=== PATIENT | male | born 1955 | race Caucasian/White ===

== ENCOUNTER 2017-08-25 13:11 | Emergency (ER) | payer SELFPAY ==
[~2017-08-25] VITALS: Ht 188 cm; Wt 97.7 kg
[~2017-08-25 13:11] MED LIST: CIPROFLOXACN500 MG PO; METRONIDAZOL500 MG PO; NORCO1 TA1 PO; TENORMIN PO
[2017-08-25 14:58] LABS: HEMOGLOBIN 18.6 g/dl (14.0-18.0); IMMATURE GRANULOCYTES 0.4 % (0.0-1.0); MEAN CELL VOLUME 91.5 fL CALC (80.0-100.0); MEAN CORPUSCULAR HGB 32.1 pG CALC (26.0-32.0); MEAN CORPUSCULAR HGB CONC 35.1 g/L CALC (32.0-36.0); NEUT# 8.6 thou/uL (1.82-7.42); RED BLOOD COUNT 5.79 mill/uL (4.70-6.10); RED CELL DISTRI WIDTH 12.4 % (11.5-15.5)
[2017-08-25 15:23] LABS: ANION GAP 17 (6-22 (CALC)); BUN 8 mg/dL (8-23); BUN/CREATININE RATIO 10 (12-20 (CALC)); CARBON DIOXIDE 27 mmol/l (22-30); CHLORIDE 96 mmol/l (95-108); CREATININE 0.8 mg/dL (0.7-1.3); GFR > 60 ML/MIN (>=60 (CALC)); GFR FOR AFR.AMER. > 60 ML/MIN (>=60 (CALC)); SODIUM 136 mmol/l (137-146)
[2017-08-25 17:20] VITALS: BP 209/110
[2017-08-26] MEDS ORDERED: ATENOLOL100 M1 PO (06:36)
[2017-08-26] MEDS ORDERED: FLEXERIL PO (07:34)
[2017-08-26] MEDS ORDERED: PREDNISONE50 MG PO (07:34)
[2017-08-26] MEDS ORDERED: PERCOCET 5/325M1 TAB PO (07:34)
[2017-08-26] MEDS ORDERED: AMLODIPINE10 MG PO (07:45)
== END 2017-08-25 18:04 | disposition left against medical advice (07) | DRG 552 ==
LOC: ED 13:11 → ED-I 16:00 → ED 17:20
PROVIDERS: Family Medicine
DX: M54.5 Low back pain (principal); F17.210 Nicotine dependence, cigarettes, uncomplicated; I16.1 Hypertensive emergency; M25.551 Pain in right hip; R07.81 Pleurodynia; I10 Essential (primary) hypertension; X50.0XXA Overexertion from strenuous movement or load, initial encounter; Y93.89 Activity, other specified; Y92.008 Other place in unspecified non-institutional (private) residence as the place of occurrence of the external cause; Z91.19 Patient's noncompliance with other medical treatment and regimen

== ENCOUNTER 2017-08-26 05:50 | Emergency (ER) | payer SELFPAY ==
[~2017-08-26] VITALS: Ht 188 cm; Wt 95.6 kg
[2017-08-26] MEDS ORDERED: ATENOLOL100 M1 PO (06:36)
[2017-08-26] MEDS ORDERED: PERCOCET 5/325M1 TAB PO (07:34)
[2017-08-26] MEDS ORDERED: PREDNISONE50 MG PO (07:34)
[2017-08-26] MEDS ORDERED: FLEXERIL PO (07:34)
[2017-08-26] MEDS ORDERED: AMLODIPINE10 MG PO (07:45)
[2017-08-26 08:07] VITALS: BP 140/87
== END 2017-08-26 08:07 | disposition home or self-care (01) | DRG 305 ==
LOC: ED 05:50
DX: I10 Essential (primary) hypertension (principal); S39.012A Strain of muscle, fascia and tendon of lower back, initial encounter; F17.210 Nicotine dependence, cigarettes, uncomplicated; W11.XXXA Fall on and from ladder, initial encounter

== ENCOUNTER 2018-06-24 14:41 | Emergency (ER) | payer MEDICARE ==
[~2018-06-24] VITALS: Ht 188 cm; Wt 49.0 kg
[~2018-06-24 14:41] MED LIST changes: +AMLODIPINE10 MG PO; +ATENOLOL100 M1 PO; +FLEXERIL PO; +PERCOCET 5/325M1 TAB PO; +PREDNISONE50 MG PO
[2018-06-24 14:55] LABS: GFR > 60 ML/MIN (>=60 (CALC)); GFR FOR AFR.AMER. > 60 ML/MIN (>=60 (CALC))
[2018-06-24 15:14] LABS: ACT PARTIAL THROMBO TIME 26.2 SECONDS (20.0-32.5); PROTHROMBIN TIME 10.6 SECONDS (9.0-12.5)
[2018-06-24 15:15] LABS: ALBUMIN 4.4 g/dL (3.2-5.0); ALKALINE PHOSPHATASE 130 u/l (38-126); ANION GAP 16 (6-22 (CALC)); BILIRUBIN, TOTAL 0.8 mg/dL (0.0-1.4); BUN 8 mg/dL (8-23); BUN/CREATININE RATIO 9 (12-20 (CALC)); CARBON DIOXIDE 23 mmol/l (22-30); CHLORIDE 97 mmol/l (95-108); CREATININE 0.9 mg/dL (0.7-1.3); GFR > 60 ML/MIN (>=60 (CALC)); GFR FOR AFR.AMER. > 60 ML/MIN (>=60 (CALC)); POTASSIUM 4.2 mmol/l (3.5-5.1); SGOT/AST 31 u/l (19-48); SODIUM 132 mmol/l (137-146); TOTAL PROTEIN 6.7 g/dL (6.3-8.2)
[2018-06-24 15:20] LABS: HEMATOCRIT 53.6 % (39.0-50.0); HEMOGLOBIN 18.9 g/dl (14.0-18.0); IMMATURE GRANULOCYTES 0.3 % (0.0-5.0); MEAN CELL VOLUME 91.5 fL CALC (80.0-100.0); MEAN CORPUSCULAR HGB 32.3 pG CALC (26.0-32.0); MEAN CORPUSCULAR HGB CONC 35.3 g/L CALC (32.0-36.0); NEUT# 8.65 thou/uL (1.82-7.42); RED BLOOD COUNT 5.86 mill/uL (4.70-6.10); RED CELL DISTRI WIDTH 11.9 % (11.5-15.5)
[2018-06-24 15:45] VITALS: BP 162/91
== END 2018-06-24 15:57 | disposition short-term general hospital (02) ==
LOC: ED 14:41
PROVIDERS: Family Medicine
DX: I63.9 Cerebral infarction, unspecified (principal); R29.810 Facial weakness; R27.0 Ataxia, unspecified; I10 Essential (primary) hypertension; F17.200 Nicotine dependence, unspecified, uncomplicated; R29.704 NIHSS score 4
CPT/HCPCS: J2997; Q9967

== ENCOUNTER 2019-04-19 11:49 | Emergency (ER) | payer MEDICARE, OTHER ==
[~2019-04-19] VITALS: Ht 188 cm; Wt 98.0 kg
[2019-04-19] MEDS ORDERED: LISINOPRIL20 MG PO (12:33)
[2019-04-19] MEDS ORDERED: NORVASC5 M1 PO (12:33)
[2019-04-19] MEDS ORDERED: ELIQUIS5 MG PO (12:33)
[2019-04-19] MEDS ORDERED: LISINOPRIL40 MG PO (14:06)
[2019-04-19] MEDS ORDERED: PRAVASTATIN SOD80 MG PO (14:06)
[2019-04-19] MEDS ORDERED: TRAMADOL HYDROC50 M1 PO (14:37)
[2019-04-19 14:45] VITALS: BP 117/76
[2019-06-15] MEDS ORDERED: ASPIRIN 81 LOW81 MG PO (15:26)
== END 2019-04-19 14:45 | disposition home or self-care (01) ==
LOC: ED 11:49
DX: M79.602 Pain in left arm (principal); I69.934 Monoplegia of upper limb following unspecified cerebrovascular disease affecting left non-dominant side; I10 Essential (primary) hypertension; F17.210 Nicotine dependence, cigarettes, uncomplicated

== ENCOUNTER 2019-05-08 17:04 | Emergency (ER) | payer MEDICARE, OTHER ==
[~2019-05-08] VITALS: Ht 188 cm; Wt 97.3 kg
[~2019-05-08 17:04] MED LIST changes: +ELIQUIS5 MG PO; +LISINOPRIL20 MG PO; +LISINOPRIL40 MG PO; +NORVASC5 M1 PO; +PRAVASTATIN SOD80 MG PO; +TRAMADOL HYDROC50 M1 PO
[2019-05-08 18:54] LABS: HEMATOCRIT 36.5 % (39.0-50.0); HEMOGLOBIN 12.3 g/dl (14.0-18.0); IMMATURE GRANULOCYTES 0.3 % (0.0-5.0); MEAN CELL VOLUME 88.4 fL CALC (80.0-100.0); MEAN CORPUSCULAR HGB 29.8 pG CALC (26.0-32.0); MEAN CORPUSCULAR HGB CONC 33.7 g/L CALC (32.0-36.0); NEUT# 7.43 thou/uL (1.82-7.42); RED BLOOD COUNT 4.13 mill/uL (4.70-6.10); RED CELL DISTRI WIDTH 12.4 % (11.5-15.5)
[2019-05-08 19:53] LABS: ALBUMIN 3.5 g/dL (3.2-5.0); ALKALINE PHOSPHATASE 115 u/l (38-126); ANION GAP 14 (6-22 (CALC)); BILIRUBIN, TOTAL 0.5 mg/dL (0.0-1.4); BUN 20 mg/dL (8-23); BUN/CREATININE RATIO 22 (12-20 (CALC)); CARBON DIOXIDE 22 mmol/l (22-30); CHLORIDE 105 mmol/l (95-108); CREATININE 0.9 mg/dL (0.7-1.3); GFR > 60 ML/MIN (>=60 (CALC)); GFR FOR AFR.AMER. > 60 ML/MIN (>=60 (CALC)); LIPASE 90 u/l (23-300); POTASSIUM 4.4 mmol/l (3.5-5.1); SGOT/AST 20 u/l (19-48); SODIUM 136 mmol/l (137-146); TOTAL PROTEIN 6.4 g/dL (6.3-8.2)
[2019-05-08 20:33] LABS: URINE BILIRUBIN - DIPSTICK NEGATIVE (NEGATIVE); URINE BLOOD DIPSTICK NEGATIVE (NEGATIVE); URINE COLOR YELLOW; URINE GLUCOSE - DIPSTICK NEGATIVE (NEGATIVE); URINE KETONE NEGATIVE (NEGATIVE); URINE LEUK ESTERASE NEGATIVE (NEGATIVE); URINE NITRITE - DIPSTICK NEGATIVE (Negative); URINE PH 5.5 (4.5-8.0); URINE PROTEIN - DIPSTICK NEGATIVE (NEG-TRACE); URINE SPECIFIC GRAVITY 1.025; URINE UROBILINOGEN - DIPSTICK 0.2 E.U./dL (0.2)
[2019-05-08] MEDS ORDERED: TRAMADOL HCL50 MG PO (21:58)
[2019-05-08] MEDS ORDERED: TORADOL PO (21:58)
[2019-05-08 22:50] VITALS: BP 110/68
[2019-06-15] MEDS ORDERED: ASPIRIN 81 LOW81 MG PO (15:26)
== END 2019-05-08 22:50 | disposition home or self-care (01) ==
LOC: ED 17:04
PROVIDERS: Family Medicine
DX: S39.012A Strain of muscle, fascia and tendon of lower back, initial encounter (principal); S30.0XXA Contusion of lower back and pelvis, initial encounter; R10.9 Unspecified abdominal pain; R07.89 Other chest pain; M25.561 Pain in right knee; I10 Essential (primary) hypertension; F17.210 Nicotine dependence, cigarettes, uncomplicated; V03.00XA Pedestrian on foot injured in collision with car, pick-up truck or van in nontraffic accident, initial encounter; Y92.481 Parking lot as the place of occurrence of the external cause

== ENCOUNTER 2019-07-18 | Emergency (ER) | payer MEDICARE, OTHER ==
[~2019-07-18] MED LIST changes: +ASPIRIN 81 LOW81 MG PO; +TORADOL PO; +TRAMADOL HCL50 MG PO
[2019-07-18] MEDS ORDERED: HYDROCO/APAP1 TA9 PO (13:43)
== END 2019-07-18 13:46 | disposition home or self-care (01) ==
PROC: 0RSWXZZ Reposition Right Finger Phalangeal Joint, External Approach (ICD-10-PCS; principal; 2019-07-18)
DX: S63.284A Dislocation of proximal interphalangeal joint of right ring finger, initial encounter (principal); S62.304A Unspecified fracture of fourth metacarpal bone, right hand, initial encounter for closed fracture; S60.512A Abrasion of left hand, initial encounter; R51 Headache; M54.5 Low back pain; I10 Essential (primary) hypertension; I69.354 Hemiplegia and hemiparesis following cerebral infarction affecting left non-dominant side; F17.200 Nicotine dependence, unspecified, uncomplicated; W10.9XXA Fall (on) (from) unspecified stairs and steps, initial encounter; Y92.009 Unspecified place in unspecified non-institutional (private) residence as the place of occurrence of the external cause

== ENCOUNTER 2020-06-17 14:11 | Emergency (ER) | payer MEDICARE, OTHER ==
[~2020-06-17] VITALS: Ht 188 cm; Wt 75.0 kg
[~2020-06-17 14:11] MED LIST changes: +HYDROCO/APAP1 TA9 PO
[2020-06-17 15:53] LABS: HEMATOCRIT 31.4 % (39.0-50.0); IMMATURE GRANULOCYTES 0.4 % (0.0-5.0); MEAN CELL VOLUME 85.6 fL CALC (80.0-100.0); MEAN CORPUSCULAR HGB 27.2 pG CALC (26.0-32.0); MEAN CORPUSCULAR HGB CONC 31.8 g/dL CAL (32.0-36.0); NEUT# 2.7 thou/uL (1.82-7.42); RED BLOOD COUNT 3.67 mill/uL (4.70-6.10); RED CELL DISTRI WIDTH 16.1 % (11.5-15.5)
[2020-06-17 16:38] LABS: ACT PARTIAL THROMBO TIME 32.3 SECONDS (20.0-32.5); INTERNATIONAL NORMALIZED RATIO 1.2 RATIO (0.7-1.3); PROTHROMBIN TIME 11.8 SECONDS (9.0-12.5)
[2020-06-17 17:30] VITALS: BP 135/75
== END 2020-06-17 17:33 | disposition home or self-care (01) ==
LOC: ED 14:11
DX: K94.01 Colostomy hemorrhage (principal); K94.09 Other complications of colostomy; L30.8 Other specified dermatitis; I10 Essential (primary) hypertension; F17.200 Nicotine dependence, unspecified, uncomplicated; Y83.3 Surgical operation with formation of external stoma as the cause of abnormal reaction of the patient, or of later complication, without mention of misadventure at the time of the procedure; Z86.73 Personal history of transient ischemic attack (TIA), and cerebral infarction without residual deficits; Z79.01 Long term (current) use of anticoagulants

== ENCOUNTER 2021-02-08 09:57 | Emergency (ER) | payer MEDICARE, OTHER ==
[~2021-02-08] VITALS: Ht 188 cm; Wt 50.0 kg
[2021-02-08] MEDS ORDERED: TRAZODONE50 MG PO (10:16)
[2021-02-08 10:54] VITALS: BP 137/79
== END 2021-02-08 11:00 | disposition home or self-care (01) ==
LOC: ED 09:57
DX: Z43.3 Encounter for attention to colostomy (principal); I10 Essential (primary) hypertension; Z86.73 Personal history of transient ischemic attack (TIA), and cerebral infarction without residual deficits; F17.200 Nicotine dependence, unspecified, uncomplicated

== ENCOUNTER 2021-08-03 17:19 | Emergency (ER) | payer MEDICARE, OTHER ==
[~2021-08-03] VITALS: Ht 188 cm; Wt 81.8 kg
[~2021-08-03 17:19] MED LIST changes: +TRAZODONE50 MG PO
[2021-08-03] MEDS ORDERED: HYDROCO/APAP1 T10 PO (17:46)
[2021-08-03] MEDS ORDERED: PREDNISONE50 MG PO (17:50)
[2021-08-03 17:59] VITALS: BP 132/78
== END 2021-08-03 18:14 | disposition home or self-care (01) ==
LOC: ED 17:19
DX: M54.50 Low back pain, unspecified (principal); I10 Essential (primary) hypertension; F17.200 Nicotine dependence, unspecified, uncomplicated; Z86.73 Personal history of transient ischemic attack (TIA), and cerebral infarction without residual deficits

== ENCOUNTER 2021-08-05 11:37 | Emergency (ER) | payer MEDICARE, OTHER ==
[~2021-08-05] VITALS: Ht 188 cm; Wt 90.0 kg
[~2021-08-05 11:37] MED LIST changes: +HYDROCO/APAP1 T10 PO
[2021-08-05 11:43] VITALS: BP 182/105
[2021-08-05 11:44] VITALS: BP 168/108
[2021-08-05 12:01] VITALS: BP 165/95
[2021-08-05 12:15] VITALS: BP 160/106
[2021-08-05 15:18] LABS: URINE BILIRUBIN - DIPSTICK NEGATIVE (NEGATIVE); URINE BLOOD DIPSTICK SMALL (NEGATIVE); URINE COLOR YELLOW; URINE GLUCOSE - DIPSTICK NEGATIVE (NEGATIVE); URINE KETONE NEGATIVE (NEGATIVE); URINE LEUK ESTERASE NEGATIVE (NEGATIVE); URINE PH 5.5 (4.5-8.0); URINE PROTEIN - DIPSTICK NEGATIVE (NEG-TRACE); URINE SPECIFIC GRAVITY 1.025; URINE UROBILINOGEN - DIPSTICK 0.2 E.U./dL (0.2)
[2021-08-05 15:19] LABS: URINE NITRITE - DIPSTICK NEGATIVE (Negative)
[2021-08-05 15:28] LABS: URINE WBC 0-2 WBC/hpf (0-5)
[2021-08-05] MEDS ORDERED: MEDDOSEPAK PO (15:37)
[2021-08-05 16:23] VITALS: BP 137/87
== END 2021-08-05 16:23 | disposition home or self-care (01) ==
LOC: ED 11:37
DX: M54.50 Low back pain, unspecified (principal); F15.10 Other stimulant abuse, uncomplicated; I10 Essential (primary) hypertension; F17.200 Nicotine dependence, unspecified, uncomplicated; Z86.73 Personal history of transient ischemic attack (TIA), and cerebral infarction without residual deficits

== ENCOUNTER 2021-08-06 12:20 | Inpatient (IN) | payer MEDICARE, OTHER ==
[2021-08-06] VITALS (10 sets, daily range): BP systolic 126–152; BP diastolic 68–95
[~2021-08-06] VITALS: Ht 188 cm; Wt 84.0 kg
[~2021-08-06 12:20] MED LIST changes: +MEDDOSEPAK PO
[2021-08-06 13:15] LABS: GFR > 60 ML/MIN (>=60 (CALC)); GFR FOR AFR.AMER. > 60 ML/MIN (>=60 (CALC))
[2021-08-06 13:18] LABS: HEMATOCRIT 36.6 % (39.0-50.0); HEMOGLOBIN 12.1 g/dl (14.0-18.0); IMMATURE GRANULOCYTES 1.1 % (0.0-5.0); MEAN CELL VOLUME 83.2 fL CALC (80.0-100.0); MEAN CORPUSCULAR HGB 27.5 pG CALC (26.0-32.0); MEAN CORPUSCULAR HGB CONC 33.1 g/dL CAL (32.0-36.0); NEUT# 18.57 thou/uL (1.82-7.42); RED BLOOD COUNT 4.4 mill/uL (4.70-6.10); RED CELL DISTRI WIDTH 13.6 % (11.5-15.5)
[2021-08-06 13:33] LABS: ALBUMIN 3.3 g/dL (3.2-5.0); ALKALINE PHOSPHATASE 84 u/l (38-126); ANION GAP 11 (6-22 (CALC)); BILIRUBIN, TOTAL 1.5 mg/dL (0.0-1.4); BUN 21 mg/dL (8-23); BUN/CREATININE RATIO 19 (12-20 (CALC)); CARBON DIOXIDE 24 mmol/l (22-30); CHLORIDE 100 mmol/l (95-108); CREATININE 1.1 mg/dL (0.7-1.3); GFR > 60 ML/MIN (>=60 (CALC)); GFR FOR AFR.AMER. > 60 ML/MIN (>=60 (CALC)); POTASSIUM 3.8 mmol/l (3.5-5.1); SGOT/AST 84 u/l (19-48); SODIUM 131 mmol/l (137-146); TOTAL PROTEIN 6.4 g/dL (6.3-8.2)
[2021-08-06 13:37] LABS: URINE BILIRUBIN - DIPSTICK NEGATIVE (NEGATIVE); URINE BLOOD DIPSTICK LARGE (NEGATIVE); URINE COLOR YELLOW; URINE GLUCOSE - DIPSTICK NEGATIVE (NEGATIVE); URINE KETONE TRACE mg/dL (NEGATIVE); URINE LEUK ESTERASE NEGATIVE (NEGATIVE); URINE PROTEIN - DIPSTICK 100 mg/dL (NEG-TRACE); URINE UROBILINOGEN - DIPSTICK 0.2 E.U./dL (0.2)
[2021-08-06 13:43] LABS: URINE NITRITE - DIPSTICK NEGATIVE (Negative)
== END 2021-08-06 20:45 | disposition short-term general hospital (02) | DRG 871 ==
LOC: ED 12:20 → ED-I 15:22 → ED 15:37 → MS2 15:38
PROVIDERS: Family Medicine; ADMIT Internal Medicine; ATTEND Internal Medicine
DX: A41.9 Sepsis, unspecified organism (principal); G93.41 Metabolic encephalopathy; K94.09 Other complications of colostomy; R65.20 Severe sepsis without septic shock; I10 Essential (primary) hypertension; F15.10 Other stimulant abuse, uncomplicated; M54.6 Pain in thoracic spine; M54.50 Low back pain, unspecified; F17.200 Nicotine dependence, unspecified, uncomplicated; Y83.3 Surgical operation with formation of external stoma as the cause of abnormal reaction of the patient, or of later complication, without mention of misadventure at the time of the procedure; Z86.73 Personal history of transient ischemic attack (TIA), and cerebral infarction without residual deficits; Z20.822 Contact with and (suspected) exposure to COVID-19; Z86.718 Personal history of other venous thrombosis and embolism; Z79.01 Long term (current) use of anticoagulants
CPT/HCPCS: Q9967

== ENCOUNTER 2021-11-24 17:50 | Observation (INO) | payer MEDICARE, OTHER ==
[~2021-11-24] VITALS: Ht 188 cm; Wt 82.0 kg
[2021-11-24] VITALS (15 sets, daily range): BP systolic 95–139; BP diastolic 58–87
[2021-11-24] MEDS ORDERED: TAMSULOSIN HCL0.4 MG PO (19:01)
[2021-11-24 19:05] LABS: HEMATOCRIT 36.6 % (39.0-50.0); HEMOGLOBIN 12.4 g/dl (14.0-18.0); IMMATURE GRANULOCYTES 0.2 % (0.0-5.0); MEAN CELL VOLUME 79.7 fL CALC (80.0-100.0); MEAN CORPUSCULAR HGB CONC 33.9 g/dL CAL (32.0-36.0); NEUT# 16.4 thou/uL (1.82-7.42); RED BLOOD COUNT 4.59 mill/uL (4.70-6.10); RED CELL DISTRI WIDTH 13.6 % (11.5-15.5)
[2021-11-24 19:29] LABS: ACT PARTIAL THROMBO TIME 36.6 SECONDS (20.0-32.5); INTERNATIONAL NORMALIZED RATIO 1.2 RATIO (0.7-1.3); PROTHROMBIN TIME 12.7 SECONDS (9.0-12.5)
[2021-11-24 19:35] LABS: ALBUMIN 3.5 g/dL (3.2-5.0); ALKALINE PHOSPHATASE 103 u/l (38-126); BUN 25 mg/dL (8-23); CHLORIDE 108 mmol/l (95-108); POTASSIUM 3.4 mmol/l (3.5-5.1); SODIUM 136 mmol/l (137-146); TOTAL PROTEIN 6.4 g/dL (6.3-8.2)
[2021-11-24 19:39] LABS: ANION GAP 15 (6-22 (CALC)); BILIRUBIN, TOTAL 0.7 mg/dL (0.0-1.4); BUN/CREATININE RATIO 12 (12-20 (CALC)); CARBON DIOXIDE 16 mmol/l (22-30); CREATININE 2.1 mg/dL (0.7-1.3); GFR FOR AFR.AMER. 38 ML/MIN (>=60 (CALC)); GFR OTHER RACES 32 ML/MIN (>=60 (CALC)); SGOT/AST 12 u/l (19-48)
[2021-11-25] VITALS (9 sets, daily range): BP systolic 108–164; BP diastolic 55–81
[2021-11-25 05:16] LABS: MEAN CELL VOLUME 81.9 fL CALC (80.0-100.0); MEAN CORPUSCULAR HGB 27.8 pG CALC (26.0-32.0); RED BLOOD COUNT 3.7 mill/uL (4.70-6.10); RED CELL DISTRI WIDTH 13.8 % (11.5-15.5)
[2021-11-25 05:20] LABS: HEMATOCRIT 30.3 % (39.0-50.0); HEMOGLOBIN 10.3 g/dl (14.0-18.0)
[2021-11-25 05:37] LABS: CREATININE 1.9 mg/dL (0.7-1.3); MAGNESIUM 1.9 mg/dL (1.6-2.3); POTASSIUM 3.7 mmol/l (3.5-5.1)
[2021-11-25 23:04] LABS: URINE BILIRUBIN - DIPSTICK NEGATIVE (NEGATIVE); URINE BLOOD DIPSTICK LARGE (NEGATIVE); URINE COLOR YELLOW; URINE GLUCOSE - DIPSTICK NEGATIVE (NEGATIVE); URINE KETONE NEGATIVE (NEGATIVE); URINE LEUK ESTERASE NEGATIVE (NEGATIVE); URINE PROTEIN - DIPSTICK NEGATIVE (NEG-TRACE); URINE SPECIFIC GRAVITY 1.025; URINE UROBILINOGEN - DIPSTICK 0.2 E.U./dL (0.2)
[2021-11-25 23:05] LABS: URINE NITRITE - DIPSTICK NEGATIVE (Negative)
[2021-11-25 23:11] LABS: URINE AMORPH SEDIMENT MANY hpf (NONE-FER); URINE BACTERIA FEW hpf; URINE SQUAMOUS EPITHELIAL CELL FEW EPI/hpf (0-FEW); URINE WBC 0-2 WBC/hpf (0-5)
[2021-11-26 04:03] VITALS: BP 162/84
[2021-11-26 06:47] VITALS: BP 173/88
[2021-11-26 10:23] LABS: HEMATOCRIT 28.7 % (39.0-50.0); HEMOGLOBIN 9.7 g/dl (14.0-18.0); MEAN CELL VOLUME 80.8 fL CALC (80.0-100.0); MEAN CORPUSCULAR HGB 27.3 pG CALC (26.0-32.0); MEAN CORPUSCULAR HGB CONC 33.8 g/dL CAL (32.0-36.0); RED BLOOD COUNT 3.55 mill/uL (4.70-6.10)
[2021-11-26 10:31] LABS: CREATININE 1.6 mg/dL (0.7-1.3); MAGNESIUM 1.6 mg/dL (1.6-2.3)
[2021-11-26 10:32] LABS: POTASSIUM 2.9 mmol/l (3.5-5.1)
[2021-11-26 12:07] VITALS: BP 162/86
[2021-11-26 16:27] VITALS: BP 178/87
[2021-11-26 19:22] VITALS: BP 136/76
[2021-11-27 00:14] VITALS: BP 182/94
[2021-11-27 04:35] VITALS: BP 187/83
[2021-11-27 05:06] LABS: HEMATOCRIT 28.1 % (39.0-50.0); HEMOGLOBIN 9.7 g/dl (14.0-18.0); MEAN CELL VOLUME 80.5 fL CALC (80.0-100.0); MEAN CORPUSCULAR HGB 27.8 pG CALC (26.0-32.0); MEAN CORPUSCULAR HGB CONC 34.5 g/dL CAL (32.0-36.0); RED BLOOD COUNT 3.49 mill/uL (4.70-6.10); RED CELL DISTRI WIDTH 14.2 % (11.5-15.5)
[2021-11-27 05:22] LABS: BUN 13 mg/dL (8-23); BUN/CREATININE RATIO 9 (12-20 (CALC)); CHLORIDE 114 mmol/l (95-108); CREATININE 1.4 mg/dL (0.7-1.3); GFR FOR AFR.AMER. > 60 ML/MIN (>=60 (CALC)); GFR OTHER RACES 50 ML/MIN (>=60 (CALC)); MAGNESIUM 1.9 mg/dL (1.6-2.3); SODIUM 138 mmol/l (137-146)
[2021-11-27 05:34] LABS: ANION GAP 8 (6-22 (CALC)); CARBON DIOXIDE 20 mmol/l (22-30); POTASSIUM 3.8 mmol/l (3.5-5.1)
[2021-11-27 06:34] VITALS: BP 181/88
[2021-11-27] MEDS ORDERED: AMOX/K CLAV875 M1 PO (09:42)
[2021-11-27 11:22] VITALS: BP 188/93
[2021-11-27] MEDS ORDERED: NORVASC10 M1 PO (11:37)
== END 2021-11-27 14:05 | disposition home or self-care (01) ==
LOC: ED 17:50 → ED-I 20:15 → MS2 20:21 → ED 20:21 → MS2 20:21
PROVIDERS: Family Medicine; ADMIT Hospitalist; ATTEND Hospitalist
DX: D72.829 Elevated white blood cell count, unspecified (principal); N17.9 Acute kidney failure, unspecified; F15.10 Other stimulant abuse, uncomplicated; I12.9 Hypertensive chronic kidney disease with stage 1 through stage 4 chronic kidney disease, or unspecified chronic kidney disease; N18.4 Chronic kidney disease, stage 4 (severe); F17.210 Nicotine dependence, cigarettes, uncomplicated; Z93.3 Colostomy status; Z86.79 Personal history of other diseases of the circulatory system; Z79.01 Long term (current) use of anticoagulants; Z90.49 Acquired absence of other specified parts of digestive tract; Z86.73 Personal history of transient ischemic attack (TIA), and cerebral infarction without residual deficits; Z20.822 Contact with and (suspected) exposure to COVID-19
CPT/HCPCS: G0378; J3475

== ENCOUNTER 2021-12-25 13:08 | Emergency (ER) | payer MEDICARE, OTHER ==
[~2021-12-25] VITALS: Ht 188 cm; Wt 81.8 kg
[~2021-12-25 13:08] MED LIST changes: +AMOX/K CLAV875 M1 PO; +NORVASC10 M1 PO; +TAMSULOSIN HCL0.4 MG PO
[2021-12-25 15:27] VITALS: BP 127/78
== END 2021-12-25 15:43 | disposition home or self-care (01) ==
LOC: ED 13:08
DX: Z43.3 Encounter for attention to colostomy (principal); S41.112A Laceration without foreign body of left upper arm, initial encounter; I10 Essential (primary) hypertension; F17.200 Nicotine dependence, unspecified, uncomplicated; W22.01XA Walked into wall, initial encounter; Z86.73 Personal history of transient ischemic attack (TIA), and cerebral infarction without residual deficits

== ENCOUNTER 2022-06-07 09:40 | Emergency (ER) | payer MEDICARE, OTHER ==
[~2022-06-07] VITALS: Ht 188 cm; Wt 75.0 kg
[2022-06-07 10:01] VITALS: BP 171/97
[2022-06-07 10:16] VITALS: BP 102/83
[2022-06-07 10:31] VITALS: BP 102/83
== END 2022-06-07 10:36 | disposition home or self-care (01) ==
LOC: ED 09:40
DX: Z46.89 Encounter for fitting and adjustment of other specified devices (principal); I10 Essential (primary) hypertension; Z86.73 Personal history of transient ischemic attack (TIA), and cerebral infarction without residual deficits; F17.200 Nicotine dependence, unspecified, uncomplicated

== ENCOUNTER 2023-02-04 12:29 | Emergency (ER) | payer MEDICARE ==
[~2023-02-04] VITALS: Ht 188 cm; Wt 74.2 kg
[2023-02-04 12:43] VITALS: BP 132/111
[2023-02-04 12:44] VITALS: BP 162/97
[2023-02-04 13:25] LABS: BASO% 0.5 % (0-3); EOS% 1.5 % (0-8); IMMATURE GRANULOCYTES 0.3 % (0.0-5.0); LYMPH% 14.6 % (15-41); MEAN CORPUSCULAR HGB 29.1 pG CALC (26.0-32.0); MEAN CORPUSCULAR HGB CONC 33.7 g/dL CAL (32.0-36.0); MONO% 8.2 % (2-13); NEUT# 8.69 thou/uL (1.82-7.42); NEUT% 74.9 % (42-76); RED BLOOD COUNT 4.57 mill/uL (4.70-6.10); RED CELL DISTRI WIDTH 12.8 % (11.5-15.5)
[2023-02-04 13:29] LABS: HEMATOCRIT 39.5 % (39.0-50.0); HEMOGLOBIN 13.3 g/dl (14.0-18.0); MEAN CELL VOLUME 86.4 fL CALC (80.0-100.0)
[2023-02-04 13:30] LABS: ALBUMIN 4.1 g/dL (3.2-5.0); ALKALINE PHOSPHATASE 134 u/l (38-126); ANION GAP 13 (6-22 (CALC)); BILIRUBIN, TOTAL 0.8 mg/dL (0.2-1.3); BUN 26 mg/dL (8-23); BUN/CREATININE RATIO 21 (12-20 (CALC)); CARBON DIOXIDE 21 mmol/l (22-30); CHLORIDE 106 mmol/l (95-108); CREATININE 1.2 mg/dL (0.7-1.3); GFR FOR AFR.AMER. > 60 ML/MIN (>=60 (CALC)); GFR OTHER RACES 60 ML/MIN (>=60 (CALC)); POTASSIUM 4.2 mmol/l (3.5-5.1); SGOT/AST 21 u/l (19-48); SODIUM 136 mmol/l (137-146); TOTAL PROTEIN 7.5 g/dL (6.3-8.2)
[2023-02-04 13:58] VITALS: BP 171/71
[2023-02-04 14:01] VITALS: BP 185/153
[2023-02-04] MEDS ORDERED: PREDNISONE20 MG PO (17:09)
[2023-02-04] MEDS ORDERED: KEFLEX500 MG PO (17:09)
[2023-02-04] MEDS ORDERED: MUPIROCIN2 % EX (17:09)
[2023-02-04] MEDS ORDERED: CYCLOBENZAPRINE10 MG PO (17:09)
[2023-02-04 17:17] LABS: URINE BILIRUBIN - DIPSTICK Negative (NEGATIVE); URINE BLOOD DIPSTICK Small (NEGATIVE); URINE GLUCOSE - DIPSTICK Negative (NEGATIVE); URINE KETONE Negative (NEGATIVE); URINE LEUK ESTERASE Negative (NEGATIVE); URINE NITRITE - DIPSTICK Negative (Negative); URINE PH 5.5 (4.5-8.0); URINE PROTEIN - DIPSTICK 30 mg/dL (NEG-TRACE); URINE UROBILINOGEN - DIPSTICK 0.2 E.U./dL (0.2)
[2023-02-04 17:22] LABS: URINE COLOR Yellow
[2023-02-04 17:25] LABS: URINE WBC 0-2 WBC/hpf (0-5)
[2023-02-04 17:37] VITALS: BP 185/153
== END 2023-02-04 18:10 | disposition home or self-care (01) ==
LOC: ED 12:29
PROVIDERS: Nurse Practitioner
DX: S16.1XXA Strain of muscle, fascia and tendon at neck level, initial encounter (principal); L03.114 Cellulitis of left upper limb; L03.113 Cellulitis of right upper limb; B95.8 Unspecified staphylococcus as the cause of diseases classified elsewhere; I10 Essential (primary) hypertension; F17.210 Nicotine dependence, cigarettes, uncomplicated; X58.XXXA Exposure to other specified factors, initial encounter; Z86.73 Personal history of transient ischemic attack (TIA), and cerebral infarction without residual deficits